=== PATIENT | male | born 1995 | race African-American/Black ===

== ENCOUNTER 2024-09-06 17:39 | Emergency (ER) | payer MEDICAID ==
[~2024-09-06] VITALS: Ht 175.3 cm; Wt 80.9 kg
[2024-09-06 20:22] VITALS: TEMP 99.105368
[2024-09-06 20:24] LABS: COVID AG,FIA SOURCE NASAL SWAB
[2024-09-06 20:31] LABS: APPEARANCE,URINE CLEAR (CLEAR); GLUCOSE, URINE (UA) NEGATIVE (NEGATIVE); LEUKOCYTE ESTERASE ,URINE NEGATIVE (NEGATIVE); NITRATE,URINE NEGATIVE (NEGATIVE); OCCULT BLOOD,URINE NEGATIVE (NEGATIVE); PH,URINE DRUG SCREEN 5.5 (5.0-8.0); SPECIFIC GRAVITIY, URINE 1.020 (1.003-1.030)
[2024-09-06 20:37] LABS: ALCOHOL, URINE DRUG SCREEN NEGATIVE (NEGATIVE); AMPHET/METH SCREEN,URINE NEGATIVE (NEGATIVE); BARBITURATE SCREEN, URINE NEGATIVE (NEGATIVE); CANNABINOID SCREEN,URINE NEGATIVE (NEGATIVE); COCAINE SCREEN,URINE NEGATIVE (NEGATIVE); METHADONE SCREEN, URINE NEGATIVE (NEGATIVE)
[2024-09-06 20:49] LABS: SARS-COV2 (COVID) ANTIGEN,FIA Negative (Negative)
[2024-09-06] MEDS: LORazepam 2 MG/ML VIAL IM ONE (21:01)
[2024-09-07 03:00] VITALS: BP 122/86; PULSE 90; RESP 16; O2SAT 100
== END 2024-09-07 04:10 ==
LOC: EMS 17:39
DX: F20.0 Paranoid schizophrenia (principal); I10 Essential (primary) hypertension; F32.A Depression, unspecified; E78.00 Pure hypercholesterolemia, unspecified; F17.210 Nicotine dependence, cigarettes, uncomplicated; F10.90 Alcohol use, unspecified, uncomplicated; Z20.822 Contact with and (suspected) exposure to COVID-19; Y90.9 Presence of alcohol in blood, level not specified
CPT/HCPCS: 99291; 87426; 96372 ×2; 80307; 81003; J1200; J1630; J2060; J3230